=== PATIENT | male | born 1975 | race Caucasian/White ===

== ENCOUNTER 2022-12-01 07:43 | Day surgery (SDC) | payer OTHER, SELFPAY ==
[2022-11-13 15:01] VITALS: BMI 22.4
[2022-12-01] VITALS (11 sets, daily range): BP systolic 114–156; BP diastolic 68–99; PULSE 77–108; RESP 12–18; TEMP 36.4–37.4; O2SAT 95–98; BMI 22.4
[2022-12-01] MEDS: LACTATED RINGERS 1,000 ML 100 ML IV (08:19)
--- NOTE | 2022-12-01 09:02 | PM.PREOP ---
Pre-operative Note COVID-19 Criteria for continued procedure: Expected advancement of disease process, Possibility delay results in more complex future surgery or treatment, Increased loss of function, Continuing or worsening of significant or severe pain, Deterioration of the patient's condition or overall health and Delay expected to result in less-positive ultimate med/surg outcome Interval Note History & Physical reviewed/Exam performed by Physician: Yes Changes to H&P: No
--- NOTE | 2022-12-01 09:34 | SUR.OPER ---
Supine on padded OR bed, head on pillow, arms padded and tucked at sides, legs uncrossed, safety belt at thigh, tape over blanket over lower legs .
[2022-12-01] MEDS: CEFAZOLIN 2 GM/100 ML PREMIX 100 ML IV ×2 (10:05→18:08)
--- NOTE | 2022-12-01 12:21 | P.OP_ITS ---
Operative Date/Time/Diagnoses Date of procedure: 12/01/22 Time of procedure: 10:00 Pre-op diagnosis: 1. C5-6, C6-7 spinal stenosis 2. C5-6, C6-7 spondylosis with radiculopathy Post-op diagnosis: same Procedure & Clinicians Procedure: 1. C5-6 C6-7 anterior cervical diskectomy and fusion 2. C5-6 C6-7 anterior interbody cage placement 3. C5-6 C6-7 anterior instrumentation with plate and screw placement in C5-C6 and C7 vertebrae 4. Utilization of microsurgical technique and operating microscope Same procedure as scheduled: Yes Indications: Patient has been having chronic neck pain and worsening cervical radiculopathy. Patient failed multiple conservative management with worsening pain weakness and numbness in her upper extremity. Patient has been having difficulty performing activity of daily living. After discussing risks benefits of treatment options, patient elected proceed with surgery. Surgeon: Ronny Ortiz Research Librarian: Tracy Chavez Click Yes if Unassisted: No Anesthesia Type: General Operative Notes Closure Type: primary Specimen(s): none sent Prosthetic devices, grafts, tissues, transplants, or devices: Globus Extend Plate, PEEK cages Estimated Blood Loss (mL): 5 Blood products transfused: none Procedure in detail: Patient was seen in the preoperative area. Risks and benefits of the surgery was discussed with the patient. Operative consent was obtained and placed in the chart. Patient was then taken to the operative room. Prophylactic antibiotic was given less than 0.5 hr prior to skin incision. General anesthesia was administered. Patient was placed into a supine position on her radiolucent table. Bilateral shoulders were taped down to allow proper C-arm imaging. Anterior cervical area was prepped and draped in a sterile fashion. Time-out was performed at this time. Using lateral C-arm imaging, the level between C5 and C7 was identified and marked on patient's neck. A oblique incision from midline towards medial border of sternocleidomastoid muscle was made. The platysma muscle was incised in line with skin incision. Metzenbaum scissor was used to develop the plane between the medial border of sternocleidomastoid d and the strap muscles medially. The carotid sheath and its contents were identified and protected behind the hand- held retractor during the entire case. The plane between the carotid sheath and strap muscles was developed with Metzenbaum scissors. Dissection was made down to the level of the anterior cervical fascia. Longus colli muscle was incised on the anterior aspect of vertebral bodies bilaterally from C5-C7. Spinal needle was placed into the C5-6 disc space and confirmed with lateral C-arm imaging. Using microsurgical technique and operative microscope, anterior cervical diskectomy was performed at C5-6 and C6-7 level. This was done by removing the disc material, removing the anterior and posterior osteophytes posterior longitudinal ligaments along with performing bilateral foraminotomies at both levels. Patient was found to have severe central and foraminal stenosis at both levels. Patient's stenosis was fully decompressed after decompression was completed. After the diskectomy was completed, 2 anterior interbody cages were obtained. The cages were packed with DBM bone grafting material. One cage each along with the bone grafting material was then packed into the interbody spaces from C 5-C7 with one cage into each interbody level. After the cages were placed, the anterior cervical plate was stabilized to the C5-C7 vertebrae using 2 screws at each each level. Total 6 screws were placed. After confirming placement of the hardware with AP and lateral C-arm imaging, the screws were locked into the plate using the locking mechanism and torque limiting screwdriver. After the hardware was placed and confirmed with AP and lateral C-arm imaging, the wound was irrigated with sterile normal saline. The platysma muscle and the subcutaneous tissue was closed with 2-0 Vicryl. The skin was closed with 4-0 Monocryl and Steri-Strips. Patient tolerated the procedure well. Patient was transferred recovery room in stable condition. There were no complications. Complications: none Post-operative Condition: stable Disposition: PACU Plan for aftercare: Admit to inpatient hospital
--- NOTE | 2022-12-01 12:31 | DI.RAD.S_ITS ---
PROCEDURE: XR CERVICAL SPINE 2V OR 3V INDICATIONS: ACDF C5-6,6-7 TECHNIQUE: Fluoroscopic images were obtained during an operative procedure and submitted for interpretation following the completion of the procedure. COMPARISON: [facility], CR, XR CERVICAL SPINE 2 OR 3 VIEWS, 07/22/2022, 14:59. [facility] MR, MR CERVICAL SPINE WITHOUT CONTRAST, 08/13/2022, 12:43. FINDINGS: These fluoroscopic images were performed for intraoperative localization. On these images, anterior fixation hardware can be seen C5 through C7. Disc spacers are seen at C5-C6 and C6-C7. Intraoperative equipment can be seen. Please correlate with intraoperative findings. IMPRESSION: Normal intraoperative examination. Dictated by: Ray Otoole M.D. on 12/01/2022 at 13:27 Approved by: Ray Otoole M.D. on 12/01/2022 at 13:28
[2022-12-01] MEDS: BUPIVACAINE 0.25% W/ EPI 30 ML VIAL 5 ML INJ (12:36)
[2022-12-01] MEDS: HYDROMORPHONE 0.5 MG INJ IV ×2 (13:31→18:31)
[2022-12-01] MEDS: LACTATED RINGERS 1,000 ML 125 ML IV ×2 (13:31→22:04)
--- NOTE | 2022-12-01 14:24 | PT.IIE ---
Current Diagnoses Spinal stenosis, cervical region (12/01/22) Radiculopathy, cervical region (12/01/22) Surgery Performed Operation Date: 12/01/22 09:15 Actual Procedures p C5-6, C6-7 ACDF w. anterior instrumentation(Not Applicable) - Ronny Ortiz MD Surgical History (Last Updated 11/13/22 @ 16:07 by Lisa Albrecht, RN) History of ankle surgery Hx of LASIK [place] teeth extracted Medical History (Last Updated 11/13/22 @ 16:08 by Lisa Albrecht, RN) History of radiculopathy Psoriasiform dermatitis Spinal stenosis of cervical region Tingling in extremities Physical Therapy Inpatient Evaluation/Re-Eval M1 PT/OT-IP Prior Functional Status Start: 12/01/22 13:59 Freq: NEEDED Status: Active Protocol: Document 12/01/22 14:24 AW (Rec: 12/01/22 14:38 AW [id number]) Medical Review Prior Functional Status Medical History Reviewed Yes Communication WNL. No known deficits. Mobility and Gait Independent. Able to walk 6 miles daily. Activities of Daily Living and IADL's Independent Social History Household Members none Living Arrangements House Number of Floors (Floors) One Floor Number of Stairs To Enter/Railing? 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 States his ex will be able to check on him at discharge but no one plans to stay with him. M2 PT-IP Current Condition Start: 12/01/22 13:59 Freq: NEEDED Status: Active Protocol: Document 12/01/22 14:24 AW (Rec: 12/01/22 14:38 AW [id number]) Physical Therapy Current Condition Current Condition Evaluation Date 12/01/22 Treatment Diagnosis s/p C5-C7 ACDF Onset Date 12/01/22 M3 PT-IP Subjective Start: 12/01/22 13:59 Freq: NEEDED Status: Active Protocol: Document 12/01/22 14:24 AW (Rec: 12/01/22 14:38 AW [id number]) Subjective Physical Therapy Visit Type Type Initial Evaluation Visit Start Time 14:08 Visit Stop Time 14:24 Total Visit Minutes 16 Physical Therapy Visit Comments Patient Comments Pt is sleepy but willing to participate with PT Patient Goals Return home as soon as possible Therapy Pain Assessment Pain When Pain Assessed During Mobility Pain Present Pain Present Pain Reported Location Posterior Neck Scale Used declined to quantify M4 PT-IP Mobility and Gait Start: 12/01/22 13:59 Freq: NEEDED Status: Active Protocol: Document 12/01/22 14:24 AW (Rec: 12/01/22 14:38 AW [id number]) PT-Bed Mobility Assessment Rolling Type of Rolling Log Rolling,Roll to Right Level of Assist Standby Assistance Supine to Sit Supine to Sit Standby Assistance PT-Transfer Assessment Sit to and From Stand Sit to and from Stand Standby Assistance Equipment Transfer Assistive Device None Transfers Transfer Destination Chair Transfer Technique Stand Step Pivot Transfer Ability Level of Assist Standby Assistance Comments Mobility Comments Pt completed log roll toward his right side and sat up, complaining of light sensitivity but no headache. He completed all transfers and gait SBA and showed good understanding of his post op precautions. Gait Assessment Gait Gait Assistance Required: Independent,Standby Assistance Distance (Feet) 150 Assistive Devices Assistive Device None Gait Deviations General Gait Pattern Wide Based Gait Comments Gait Comments Pt ambulated in the hallways and completed stairs assessment with good attention to lower field of vision restriction secondary to soft collar. Stair Climbing Assessment Evaluation Level of Assist On Stairs Standby Assistance Devices Stair Climbing Assistive Devices None Technique/Endurance Stair Climbing Direction Ascend and Descend Stair Climbing Technique Step Over Step Number of Steps Climbed 3 Query Text: Stair Climbing Set # Repetitions (reps) 2 PT-Balance Assessment Sitting Balance and Reactions Static Sitting Balance Ability Normal Dynamic Sitting Balance Ability Normal Standing Balance and Reactions Static Standing Balance Ability Good Dynamic Standing Balance Ability Good Device Used no AD Functional Assessments Functional Tests Dynamic Gait Index modified DGI: 03/03 M5 PT-IP Objective Assessments Start: 12/01/22 13:59 Freq: NEEDED Status: Active Protocol: Document 12/01/22 14:24 AW (Rec: 12/01/22 14:38 AW [id number]) Orientation Orientation/Cognition Level of Alertness Alert Orientation Name,Day of Week,Place, Situation Language Function Ability No Deficits Noted Safety Awareness Understands Safety Issues Gross Range of Motion Upper Extremity ROM Assessment Within Functional Limits Lower Extremity ROM Assessment Within Functional Limits Strength Upper Extremity Strength Assessment Right Impaired Lower Extremity Strength Assessment Within Functional Limits Comments Strength Comments RUE elbow flexion 4-/5. 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 Pt is left hand dominant. Coordination Assessment Gross Coordination Gross Coordination WNL Assessment Finger to Nose Test Normal Performance Sensation Assessment Sensation Gross Sensation Right UE Impaired Light Touch Impaired Sensation Description Tingling M6 PT-IP Treatment Start: 12/01/22 13:59 Freq: NEEDED Status: Active Protocol: Document 12/01/22 14:24 AW (Rec: 12/01/22 14:38 AW [id number]) Physical Therapy Treatment Education Education Provided Precautions,Post-Op Packet, Safety M7 PT-IP Assessment and Plan Start: 12/01/22 13:59 Freq: NEEDED Status: Active Protocol: Document 12/01/22 14:24 AW (Rec: 12/01/22 14:38 AW [id number]) PT Summary Assessment and Plan Potential Status of Condition at Evaluation Evolving Summary Impairments Pain,ROM,Sensation Assessment Summary Jeremy is a 47 yo man seen for PT evaluation in the immediate postoperative setting following C5-C7 ACDF. He is independent in all regards at baseline and lives alone. His ex will be able to check in on him in the coming week but no one plans to stay with him. Pt was found resting in bed, agreeable to PT assessment. VS were unremarkable. Educated pt on his post op precautions including soft collar for comfort, log roll for bed mobility, and lifting restriction. Printed handout was provided to reinforce education. Pt demonstrates weakness of biceps brachii and impaired sensation in C5, C6 dermatomes, consistent with preop diagnosis. He mobilized well with no need for more than SBA and with good attention to his precautions. PT recommends discharge home with assist once medically stable. Pt may benefit from outpatient PT vs OT when cleared by spine surgeon. No further acute PT indicated. Frequency of Treatment Frequency Of Treatment Discharge Precautions Cervical Spine Precautions Soft Collar for Comfort,No Heavy Lifting,Log Roll Recommendations To Nursing Amount of Assist Needed Standby Assistance Discharge Recommendations PT Discharge Recommendations Home with Assistance, Outpatient PT Transportation Needs at Discharge Private Vehicle
[2022-12-01] MEDS: OXYCODONE IR 5 MG TABLET PO ×2 (16:33→20:31)
[2022-12-01] MEDS: DOCUSATE 100 MG CAPSULE PO (20:31)
[2022-12-01] MEDS: SENNOSIDES 8.6 MG TABLET 17.2 MG PO (20:31)
[2022-12-02 00:02] VITALS: BP 118/59; PULSE 75; RESP 19; TEMP 36.6; O2SAT 96
[2022-12-02] MEDS: CEFAZOLIN 2 GM/100 ML PREMIX 100 ML IV (01:25)
[2022-12-02] MEDS: OXYCODONE IR 5 MG TABLET PO ×3 (02:12→08:12)
[2022-12-02] MEDS: SODIUM CHLORIDE 0.9% FLUSH 10 ML IV (05:23)
[2022-12-02 06:19] VITALS: BP 108/68; PULSE 68; RESP 17; TEMP 36.4; O2SAT 98
[2022-12-02] MEDS: ACETAMINOPHEN 325 MG TABLET 650 MG PO (07:34)
[2022-12-02] MEDS: DOCUSATE 100 MG CAPSULE PO (08:15)
[2022-12-02] MEDS: CHOLECALCIFEROL (VITAMIN D3) 1,000 UNIT TABLET 1000 UNIT PO (08:15)
[2022-12-02] MEDS: MULTIVITAMIN 1 TABLET 1 TAB PO (08:16)
--- NOTE | 2022-12-02 09:00 | OT.IP.EVAL ---
Current Diagnoses Spinal stenosis, cervical region (12/01/22) Radiculopathy, cervical region (12/01/22) Surgery Performed Operation Date: 12/01/22 09:15 Actual Procedures p C5-6, C6-7 ACDF w. anterior instrumentation(Not Applicable) - Ronny Ortiz MD Past Medical History (Last Updated 11/13/22 @ 16:08 by Lisa Albrecht, RN) History of radiculopathy Psoriasiform dermatitis Spinal stenosis of cervical region Tingling in extremities Surgical History (Last Updated 11/13/22 @ 16:07 by Lisa Albrecht, RN) History of ankle surgery Hx of LASIK [place] teeth extracted Occupational Therapy Inpatient Evaluation/Re-Eval M1 PT/OT-IP Prior Functional Status Start: 12/02/22 09:00 Freq: NEEDED Status: Active Protocol: Document 12/02/22 09:00 [facility] (Rec: 12/02/22 09:12 [facility] [id number]) Medical Review Prior Functional Status Medical History Reviewed Yes Communication WNL. No known deficits. Mobility and Gait Independent. Able to walk 6 miles daily. Activities of Daily Living and IADL's Independent Social History Household Members none Living Arrangements House Number of Floors (Floors) One Floor Number of Stairs To Enter/Railing? 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 States his ex will be able to check on him at discharge but no one plans to stay with him. Pt states has two autistic kids and to be away from them for one month. M2 OT-IP Current Condition Start: 12/02/22 09:00 Freq: Status: Active Protocol: Document 12/02/22 09:00 [facility] (Rec: 12/02/22 09:12 [facility] [id number]) Occupational Therapy Current Condition Current Condition Evaluation Date 12/02/22 Treatment Diagnosis S/P C 5-6, C6-7 ACDF Diagnosis Onset Date 12/01/22 Post Operative Precautions Cervical Spine Precautions Soft Collar for Comfort,No Heavy Lifting,Log Roll M3 OT- IP Subjective and Pain Start: 12/02/22 09:00 Freq: Status: Active Protocol: Document 12/02/22 09:00 [facility] (Rec: 12/02/22 09:12 [facility] [id number]) OT- Subjective Occupational Therapy Visit Type Type Initial Evaluation Visit Start Time 08:50 Visit Stop Time 09:00 Total Visit Minutes 10 Occupational Therapy Visit Comments Patient Comments Pt agreed to do OT eval. Patient/Caregiver Goals TO go home. OT Pain Assessment Pain When Pain Assessed During Mobility Pain Present Pain Present Pain Reported M4 OT- IP ADL's Start: 12/02/22 09:00 Freq: Status: Active Protocol: Document 12/02/22 09:00 [facility] (Rec: 12/02/22 09:12 [facility] [id number]) OT [id number] Comments OT Self-Feeding Comments Educated pt on information for swallowing after ACDF, to eat upright , softer foods, cold foods, and chew food up thoroughly. OT ADL-Grooming General Evaluation Grooming Ability Independent OT ADL-Oral Care General Eval Oral Care Ability Independent Comments Oral Care Comments Educated to hinge at his hips to spit or just spit into the basin to best follow his cervical precautions. OT ADL-Dressing General Eval Lower Body Dressing Ability Independent Comments OT Dressing Comments Pt able to adjust his socks while standing and encourage pt to sit for LB dressing needs at this time for safety. OT ADL-Toileting General Evaluation Toileting Ability Independent Comments OT Toileting Comments Reminded pt to use a night light at night when getting up to the bathroom. OT ADL-Bathing Comments OT Bathing Comments Not performed. Educated to shower chest down and that that the soft collar can be placed in the dryer if wet. M5 OT- IP IADL's Start: 12/02/22 09:00 Freq: Status: Active Protocol: Document 12/02/22 09:00 [facility] (Rec: 12/02/22 09:12 [facility] [id number]) OT-Instrumental Activities of Daily Living Deficits IADL Deficits Identified Deficits Home Safety Awareness Awareness of Need for Assistance at Home Good Awareness Ability to Problem Solve Emergency Able to Problem Solve Situations Home Safety Comments Pt's states his ex to check on him daily. Medication Management Medication Management No Deficits Identified Money Management Money Management No Deficits Identified Meal Preparation Meal Preparation Comments Pt states already has soft foods prepared for himself. Driving Driving Comments Pt aware not to drive initially . M6 OT- IP Functional Cognition Start: 12/02/22 09:00 Freq: Status: Active Protocol: Document 12/02/22 09:00 [facility] (Rec: 12/02/22 09:12 [facility] [id number]) Cognitive Factors Limiting Selfcare Function Cognitive Ability Level of Alertness Alert Patient Orientation Name,Age,Birthday,Month,Date, Year,Day of Week,Place, Situation Attention Span Ability Capable of Focused Attention, Capable of Sustained Attention Ability to Follow Commands Able to Follow Multi-Step Commands Cognitive Comments Cognitive Assessment Comments Intact. pt just needing initial education to be mindful of his head positioning during all ADl and mobility needs. OT- Vision and Hearing OT- Hearing Assessment OT- Hearing Assessment WFL OT- Vision Assessment Visual Acuity WFL M7 OT- IP Mobility and Balance Start: 12/02/22 09:00 Freq: Status: Active Protocol: Document 12/02/22 09:00 [facility] (Rec: 12/02/22 09:12 [facility] [id number]) OT- Bed Mobility Assessment Supine to Sit Supine to Sit Assist Independent Sit to Supine Sit to Supine Assist Independent OT-Transfer Assessment Sit to and From Stand Sit to and from Stand Independent Comments Mobility Comments Pt able to walk independently on level surfaces in the room. OT- Balance Assessment Sitting Balance and Reactions Static Sitting Balance Ability Normal Dynamic Sitting Balance Ability Normal Standing Balance and Reactions Static Standing Balance Ability Good Dynamic Standing Balance Ability Good M8 OT- IP Objective Assessments Start: 12/02/22 09:00 Freq: Status: Active Protocol: Document 12/02/22 09:00 [facility] (Rec: 12/02/22 09:12 [facility] [id number]) OT Gross Range of Motion Upper Extremity Range of Motion Assessment Within Functional Limits OT-Muscle Tone Assessment Muscle Tone WNL Yes M9 OT- IP Assessment and Plan Start: 12/02/22 09:00 Freq: Status: Active Protocol: Document 12/02/22 09:00 [facility] (Rec: 12/02/22 09:12 [facility] [id number]) OT Summary Assessment and Plan Potential Rehabilitation Potential Excellent Analytic Complexity at Evaluation Low Summary OT Impairments Pain Progress Towards Goals Safe For Discharge Assessment Summary Pt low complexity and has been independent in the room and just needing reminders for mindfulness of head positioning for ADl and mobility needs, safety at home especially at night, and for suggestion for swallowing needs after ACDF. Pt to go home and has his ex to assist if when needed. Goals Days to Meet Goals 1 Frequency of Treatment Frequency Of Treatment Discharge Treatment Plan OT Treatment Plan Patient/Family Education, Discharge Planning Discharge Recommendations OT Discharge Recommendations Home with Assistance Transportation Needs at Discharge Private Vehicle
[2022-12-02 09:20] VITALS: BP 128/86; PULSE 82; RESP 17; TEMP 36.5; O2SAT 99
--- NOTE | 2022-12-02 10:19 | CM.DANOTE ---
Initial DCP Assessment MANAGER TRAINING AND DEVELOPMENT reviewed EMR and rounds for d/c needs. Pt left prior to MANAGER TRAINING AND DEVELOPMENT consult that was requested in order to discuss outpatient resource needs. No further needs are indicated at this time. Pt to f/u outpatient with Dr. Ortiz. Discharge Planning/Care Management CM Discharge Assessment Start: 12/02/22 10:15 Freq: Status: Discharge Protocol: Document 12/02/22 10:16 DPL (Rec: 12/02/22 10:19 DPL [id number]) Discharge Planning Assessment Assigned Linux System Engineer NORY Hernandez Advance Directives? No History Provided By Medical Record Expected Length of Stay 1 Prior Living Arrangements House Household Members none Type of transporation used prior to Drives own vehicle admit Independent with ADL's Yes Is patient alert and oriented? Yes Comment N/A Caregiver for Another No Comment U/K Comment None. There was an order placed for MANAGER TRAINING AND DEVELOPMENT consult for d/c resources, per pt request, however he left before MANAGER TRAINING AND DEVELOPMENT could meet w/him. Barriers to Discharge No Discharge Plan Home Referrals Initiated None needed Whiteboard Updated in Patient Room with No name and ext. # of Linux System Engineer Review Status In Process Please Provide Date Initial DC 12/02/22 Assessment Was Performed Pre-Anesthesia Assessment Start: 11/13/22 15:01 Freq: Status: Discharge Protocol: Document 11/13/22 15:01 TC (Rec: 11/13/22 16:26 TC [id number]) Pre-Anesthesia Assessment Patient Information Reviewed Via Phone Assessment Assessment Completed With Patient Diagnostic Results BMP/CMP,CBC Comment 09/01/22- [place] scanned Seen Specialist in Last 12 Months Yes Specialist Seen Orthopedist Primary Language Faroese Preferred Language Faroese Event Mgr Required No Height 185.42 cm Weight 77.111 kg Body Mass Index (BMI) 22.4 Hearing Ability Normal Visual Impairment No Limitations Visual Assist None Dentition Type Teeth, Natural Present Barriers to Learning None Hx Anesthesia Reactions No Hx Family Anesthesia Reaction No Hx Malignant Hyperthermia No Hx Blood Transfusions No Hx Blood Transfusion Reaction No Anesthesia Review Requested No 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 No Cardiac Clearance Received Not Applicable Diet Type At Home Regular Dysphagia No Chronic UTI No Urinary Catheter Present No Hx Urinary Self Catheterization No Diabetes No Hx Drug Resistant Organism No Presence of External or Internal Medical No Devices Have you had any close contact with No someone diagnosed with COVID-19? Are you experiencing any of these No symptoms symptoms? Received a COVID vaccine? No Marital Status Lives With none Current Living Arrangements House Number of Floors (Floors) One Floor Number of Stairs To Enter/Railing? 2 no railing Support System Friend(s) Does the Patient Have Assistance After Yes Surgery Patient Discharge Plan Description Return Home Comment Pt states he wants to go home, this was discussed with PA Feels Safe in Current Environment Yes Been Physically Hurt or Threatened By a No Person in Current Environment If Yes, Provider Notified No Do you have thoughts of harming yourself None or others? Are you currently considering suicide? No Do you have a plan to hurt yourself or No Plan others? Do You Have Any Spiritual Beliefs That No May Affect Your HC Choices? Do You Have Any Cultural Practices That No May Affect Your HC Choices? Emergency Contact Name Zahra (mother of children) Emergency Contact Advance Directives? No Requested Patient Bring Advanced Not Applicable Directives DOS Power of Fire Hose Curer No PAC Instructions Do not shave/clip surgical site,Durable medical equipment ,Medications to take/avoid, Nasal antibiotic,No ETOH/ petroleum product on skin DOS, NPO,Pre-surgical wash,Sturdy shoes/comfortable clothes,Do not bring valuables and remove jewelry
== END 2022-12-02 10:05 | disposition home or self-care (01) ==
LOC: OR 07:45 → AC 07:46
PROVIDERS: Referring Provider Orthopaedic Surgery Orthopaedic Surgery of the Spine; Visit Provider Orthopaedic Surgery Orthopaedic Surgery of the Spine
PROC: (CPT 22552; principal; 2022-12-01 09:15)
DX: M48.02 Spinal stenosis, cervical region (principal); M54.12 Radiculopathy, cervical region; M25.78 Osteophyte, vertebrae
CPT/HCPCS: 22552; 22551; 22853 ×2; 72040; 76000; 97161; 97165; C1713; J0690; J1100; J1170; J2250; J2405; J2704; J3010